=== PATIENT | female | born 1990 | race Caucasian/White ===

== ENCOUNTER 2016-10-19 17:04 | Emergency (ER) | payer OTHER ==
--- NOTE | 2016-10-19 17:28 | EDPHY ---
H & P Time Seen by Provider: 10/19/16 17:16 HPI/ROS: CHIEF COMPLAINT: Air huffing HISTORY OF PRESENT ILLNESS: 26-year-old female presents after huffing 10 cans of air. She was having a bad day and decided bains air in an attempt to make her feel better. She was found asleep in a car by her friend. She was easily arousable. A friend brought her to the emergency department for evaluation. She tells me that she is just having a bad day, but refuses to say anything more. She denies drug use, suicidal or homicidal ideation. She refuses a mental health evaluation. REVIEW OF SYSTEMS: Constitutional: No fever, no chills Eyes: No visual changes ENT: No sore throat Respiratory: No cough, no shortness of breath Cardiac: No chest pain Gastrointestinal: No nausea, no vomiting, no abdominal pain Genitourinary: no dysuria Musculoskeletal: No leg pain or swelling Skin: No rash Neurological: No headache, no weakness Psychiatric: depression Past Medical/Surgical History: Denies Social History: single Smoking Status: Current every day smoker Physical Exam: General Appearance: Alert, tearful, cooperative Eyes: Pupils equal and round, conjunctival injection ENT, Mouth: Mucous membranes moist Neck: Normal inspection Respiratory: Lungs are clear to auscultation Cardiovascular: Regular rate and rhythm Gastrointestinal: Abdomen is soft and nontender Neurological: A&O, nonfocal exam Skin: Warm and dry Extremities: Normal inspection Psychiatric: tearful Constitutional: Initial Vital Signs Temperature (C) 36.3 C 10/19/16 17:12 Heart Rate 115 H 10/19/16 17:12 Respiratory Rate 24 H 10/19/16 17:12 Blood Pressure 127/80 H 10/19/16 17:12 O2 Sat (%) 98 10/19/16 17:12 O2 Delivery Mode Room Air Medical Decision Making ED Course/Re-evaluation: This pt presents after a non-toxic exposure. Encouraged her to seek mental health help. No indication for emergency MH evaluation, as she is not suicidal , homocidal or gravely disabled. Departure - Departure Disposition: Home, Routine, Self-Care Clinical Impression: Depression Qualifiers: Depression Type: unspecified Qualified Code(s): F32.9 - Major depressive disorder, single episode, unspecified Condition: Good Instructions: Depression (ED) Additional Instructions: Follow-up with mental health as suggested. Referrals: [facility] [Outside] - As per Instructions
[2016-10-19 18:13] VITALS: BP 137/103; PULSE 109; RESP 20; TEMP 98.1; O2SAT 99
== END 2016-10-19 18:13 | disposition home or self-care (01) ==
DX: F32.9 Major depressive disorder, single episode, unspecified (principal); F17.200 Nicotine dependence, unspecified, uncomplicated